=== PATIENT | female | born 1945 | race Caucasian/White ===

== ENCOUNTER 2017-12-19 17:07 | Emergency (ER) | payer MEDICARE ==
--- NOTE | 2017-12-19 17:54 | Emergency Department Report ---
ED General Adult HPI - General Chief complaint: Medical Clearance Stated complaint: REPLACE FEEDING TUBE Time Seen by Provider: 12/19/17 17:37 Source: EMS (ems notes not available at time of chart dictation), RN notes reviewed, old records reviewed (longterm documentation is reviewed) Mode of arrival: Stretcher Limitations: Other - History of Present Illness Initial comments: This is a 72-year-old female who is unknown to this provider previously. Her primary physician is Dr. Jonathan Myers. Her medical diagnoses include tracheostomy, recent placement of a PEG tube within the past 30 days at [facility], seizure, end-stage renal disease, history of falling. The patient is sent to the ER for evaluation of an obstructed eating to the patient is nonverbal and cannot describe any additional complaints. No documented complaints are otherwise enclosed with her paperwork. Patient nonverbal, and can therefore not describe exacerbating or relieving factors or radiation. -: unknown Quality: other Consistency: other Improves with: other Worsens with: other Associated Symptoms: other Treatments Prior to Arrival: other - Related Data Previous Rx's Medication Instructions Recorded Last Taken Type Levofloxacin [Levaquin TAB] 500 mg FEEDTUBE QDAY #7 tablet 12/19/17 Unknown Rx Allergies Allergy/AdvReac Type Severity Reaction Status Date / Time Penicillins Allergy Unknown Verified 12/19/17 17:19 ED Review of Systems ROS: Stated complaint: REPLACE FEEDING TUBE Other details as noted in HPI Comment: Unobtainable due to pts medical conditions ED Past Medical Hx - Past Medical History Hx Hypertension: Yes Hx Arthritis: Yes Hx Asthma: Yes - Social History Smoking Status: Unknown if ever smoked - Medications Home Medications: Home Medications Medication Instructions Recorded Confirmed Last Taken Type Levofloxacin [Levaquin TAB] 500 mg FEEDTUBE QDAY #7 tablet 12/19/17 Unknown Rx ED Physical Exam - General Limitations: Other General appearance: anxious - Head Head exam: Present: atraumatic, normocephalic - Eye Eye exam: Present: normal appearance, EOMI - ENT ENT exam: Present: mucous membranes dry, other (tracheostomy is in place, with no redness, pus or streaking) - Neck Neck exam: Present: normal inspection, full ROM - Respiratory Respiratory exam: Present: rhonchi (rhonchi noted in the lower lung jordan). Absent: respiratory distress - Cardiovascular Cardiovascular Exam: Present: regular rate, normal rhythm. Absent: systolic murmur, diastolic murmur, rubs, gallop - GI/Abdominal GI/Abdominal exam: Present: soft, tenderness (there is tenderness in the left upper quadrant. There is a feeding tube noted. No redness, pus or streaking is noted.), normal bowel sounds. Absent: distended, guarding, rebound, rigid - Rectal Rectal exam: Absent: normal inspection (stage I sacral ulcer is noted) - Extremities Exam Extremities exam: Present: normal inspection, other (patient is contracted. His are nontender. No long bony step-offs or tenderness.) - Back Exam Back exam: Present: normal inspection. Absent: paraspinal tenderness - Neurological Exam Neurological exam: Present: other (patient is awake. Eyes are open spontaneously. Noted to be the upper extremity spontaneously. Does not follow commands.) - Psychiatric Psychiatric exam: Present: anxious - Skin Skin exam: Present: warm, dry, intact, normal color. Absent: rash ED Course Vital Signs 12/19/17 17:17 Temperature 98 F Pulse Rate 83 Respiratory 16 Rate Blood Pressure 117/53 O2 Sat by Pulse 98 Oximetry - Reevaluation(s) Reevaluation #1: 12/19/17 19:17 Differential diagnosis, including but not limited to: Feeding tube malposition, feeding tube obstruction, pneumonia, urinary tract infection, electrolytes derangements Assessment and plan: 72-year-old female, nonverbal, tube replacement. Rectal temperature is 98 degrees. Physical exam shows a tube in the left upper quadrant, with mild skin dehiscence, no obvious infection, and a tracheostomy. She is also tender, and has some rhonchi. The tube was placed for myself with 1 attempt and no difficulty. Contacted gastroenterology, Dr. Lane Vazquez, and discuss patient's presentation. I also called the patient's son, Mr. George Milian; who told me that the feeding tube was placed around [address] Vazquez okay with tube being replaced Reevaluation #2: 12/19/17 19:53 The patient does not have a fever or leukocytosis, and her lactic acid is less than 4. The right lower lobe findings noted on CT scan are most likely positional atelectasis. The urinalysis is pending at this time, and nursing staff is going to administer a soapsuds enema given constipation noted on CT scan. Clinically doubt pneumonia at this time, however the patient does have a mild pneumonia, given lack of fever, leukocytosis, saturation well on tracheostomy collar, patient would be acceptable for a trial of oral antibiotics Reevaluation #3: 12/19/17 19:57 Postprocedure x-ray demonstrates appropriate placement of feeding tube. No leak is noted. - Procedure Description Procedures done: Left upper quadrant was cleansed with typical aseptic fashion, and a 22 [place] PEG tube was inserted with 1 attempt and no difficulty, and the balloon was filled with 10 mL of sterile saline. Silk tape was then applied to hold the tube in place. The patient tolerated the procedure well. ED Medical Decision Making - Lab Data Result diagrams: 12/19/17 18:54 12/19/17 18:54 Vital Signs 12/19/17 17:17 Temperature 98 F Pulse Rate 83 Respiratory 16 Rate Blood Pressure 117/53 O2 Sat by Pulse 98 Oximetry - Radiology Data interpreted by me: X-ray of the chest suggest right middle lobe, right lower lobe ammonia versus atelectasis Referring Physician: CHARITY MURPHY Patient Name: ÁNGEL PANDEY Date of : 1945 Sex: Female Report Date: 2017-12-19 Report Status: [place] [address] Cat Scan Report Signed Patient: ÁNGEL PANDEY MR#: [id number] : 1945 Acct:[id number] Age/Sex: 72 / F ADM Date: 12/19/17 Loc: ED Attending Dr: Ordering Physician: CHARITY MURPHY MD Date of Service: 12/19/17 Procedure(s): CT abdomen pelvis wo con Accession Number(s): [id number] cc: CHARITY MURPHY MD FINAL REPORT EXAM: CT ABDOMEN PELVIS WO CON HISTORY: abd pain TECHNIQUE: Axial images were performed from the lung bases to the pubic symphysis without contrast. Multiplanar reformats are performed on the acquisition scanner. Comparison: None FINDINGS: Patient is imaged in the right lateral decubitus position. There is dependent right atelectasis. Heart size is within normal limits. Unremarkable unenhanced liver, spleen, pancreas, bilateral adrenal glands. Dependent stones in the gallbladder. Nonobstructed appearance of the kidneys, limited assessment without IV contrast. A PEG tube is present. Stomach is decompressed. An IVC filter is present. The aorta is atherosclerotic but not aneurysmal. Bowel pattern is nonobstructed. There is a large stool ball in the rectum. There are dependent stones, blood, or debris in the urinary bladder. Uterus is normally anteverted and demonstrates calcified fibroids. There is diffuse fecal retention in the rectosigmoid which is elongated. There is moderate diffuse fecal retention. Degenerative disc disease of the mid and lower lumbar spine. IMPRESSION: Gallstones. Large rectal and sigmoid stool ball likely clinically symptomatic. Hyperdense stones, blood, or debris in the urinary bladder. Fibroid uterus. Heavy vascular occlusive disease. Peg tube. Right dependent consolidation. This may be related to the right lateral decubitus positioning or pneumonia. Transcribed By: ALESHA Dictated By: LEIA JOHNSON Electronically Authenticated By: LEIA JOHNSON Signed Date/Time: 12/19/17 5127 Critical care attestation.: If time is entered above; I have spent that time in minutes in the direct care of this critically ill patient, excluding procedure time. ED Disposition Clinical Impression: Clogged feeding tube, Atelectasis of right lung Disposition: DC-01 TO HOME OR SELFCARE Is pt being admited?: No Does the pt Need Aspirin: No Condition: Stable Instructions: Percutaneous Endoscopic Gastrostomy Insertion (GEN) Additional Instructions: Cultures were sent today, results of the available in the next 3-5 days. Have your primary care doctor contact the medical records department to obtain culture results. Continue current outpatient medications. Take the antibiotics as directed. Follow up with the primary care doctor within 3-5 days. Return to the ER right away with fevers, chills, lethargy, irritability, projectile vomiting, change in mental status, confusion, inability to tolerate liquid feeds. Prescriptions: Levofloxacin [Levaquin TAB] 500 mg FEEDTUBE QDAY #7 tablet Referrals: JESU HAWKINS MD [Primary Care Provider] - 3-5 Days JONATHAN MYERS MD [Staff Physician] - 3-5 Days
--- NOTE | 2017-12-19 18:39 | Cat Scan Report ---
FINAL REPORT EXAM: CT ABDOMEN PELVIS WO CON HISTORY: abd pain TECHNIQUE: Axial images were performed from the lung bases to the pubic symphysis without contrast. Multiplanar reformats are performed on the acquisition scanner. Comparison: None FINDINGS: Patient is imaged in the right lateral decubitus position. There is dependent right atelectasis. Heart size is within normal limits. Unremarkable unenhanced liver, spleen, pancreas, bilateral adrenal glands. Dependent stones in the gallbladder. Nonobstructed appearance of the kidneys, limited assessment without IV contrast. A PEG tube is present. Stomach is decompressed. An IVC filter is present. The aorta is atherosclerotic but not aneurysmal. Bowel pattern is nonobstructed. There is a large stool ball in the rectum. There are dependent stones, blood, or debris in the urinary bladder. Uterus is normally anteverted and demonstrates calcified fibroids. There is diffuse fecal retention in the rectosigmoid which is elongated. There is moderate diffuse fecal retention. Degenerative disc disease of the mid and lower lumbar spine. IMPRESSION: Gallstones. Large rectal and sigmoid stool ball likely clinically symptomatic. Hyperdense stones, blood, or debris in the urinary bladder. Fibroid uterus. Heavy vascular occlusive disease. Peg tube. Right dependent consolidation. This may be related to the right lateral decubitus positioning or pneumonia.
[2017-12-19 19:13] LABS: Hematocrit 33.2 % (30.3-42.9); Hemoglobin 10.6 gm/dl (10.1-14.3); Mean Corpuscular HGB Conc 32 % (30-34); Mean Corpuscular Volume 80 fl (79-97); Platelet Count 167 K/mm3 (140-440); Red Blood Count 4.18 M/mm3 (3.65-5.03); Red Cell Distribution Width 19.2 % (13.2-15.2)
--- NOTE | 2017-12-19 19:15 | XRay Report ---
FINAL REPORT EXAM: XR CHEST 1V AP HISTORY: ? rll pneumonia TECHNIQUE: Frontal chest x-ray Comparison: CT earlier same day demonstrating right lower lobe consolidation. FINDINGS: Mild cardiomegaly. Low volumes. Patient has a tracheostomy present. There is patchy right lower lobe infiltrate/consolidation superimposed on emphysema. Right humeral hardware. Global osteopenia. IVC filter. IMPRESSION: Right lower lobe dense pneumonia/consolidation. Mild cardiomegaly without overt heart failure. No pleural effusion. Emphysema.
[2017-12-19 19:24] LABS: INR 1.08 (0.87-1.13)
[2017-12-19 19:31] LABS: BUN/Creatinine Ratio 52; Blood Urea Nitrogen 26 mg/dL (7-17); Calcium 9.4 mg/dL (8.4-10.2); Hemolysis Index 6
[2017-12-19 19:39] LABS: Mean Corpuscular Hemoglobin 26 pg (28-32)
--- NOTE | 2017-12-19 19:50 | XRay Report ---
FINAL REPORT EXAM: XR G-TUBE STUDY HISTORY: s/p tube replacement TECHNIQUE: Sales Operations Analyst image was performed demonstrating tube projecting over the central abdomen FINDINGS: G tube and IVC filter. Contrast injection demonstrates intragastric contrast location with the G-tube balloon present in the region the gastric antrum. Arterial calcification. No leak. Scarring in both lung bases. IMPRESSION: Intragastric location of the G-tube balloon. No leak.
[2017-12-19 20:20] LABS: Bacteria,Urine 1+ /HPF (Negative); Bilirubin,Urine NEG (Negative); Blood,Urine NEG (Negative); Color,Urine Amber (Yellow); Mucus,Urine FEW /HPF
[2017-12-19 20:44] VITALS: BP 146/73
== END 2017-12-19 21:24 | disposition home or self-care (01) ==
LOC: ED 17:07
DX: K94.23 Gastrostomy malfunction (principal); J98.11 Atelectasis; I12.0 Hypertensive chronic kidney disease with stage 5 chronic kidney disease or end stage renal disease; N18.6 End stage renal disease; M19.90 Unspecified osteoarthritis, unspecified site; J45.909 Unspecified asthma, uncomplicated; Z88.0 Allergy status to penicillin
CPT/HCPCS: 36415; 43760; 71045; 74018; 74176; 80048; 81001; 82140; 82550; 83735; 85027; 85610; 87086; 99284; Q9963